=== PATIENT | female | born 1940 ===

== ENCOUNTER 2021-09-29 09:45 | Inpatient (IN) | payer OTHER ==
[~2021-09-29] VITALS: Ht 152.4 cm; Wt 74.4 kg
[2021-10-02] MEDS ORDERED: PERCOCET 5-3251 EACH PO (09:52)
[2021-10-02] MEDS ORDERED: ELIQUIS2.5 MG PO (09:52)
[2021-10-02] MEDS ORDERED: DUI500 PO (09:52)
== END 2021-10-02 22:48 | disposition home or self-care (01) | DRG 470 ==
LOC: SURG 09-30 06:00 → O/R 09-30 06:00 → SURG 09-30 08:30 → SURH 10-01 16:45
PROVIDERS: ADMIT Orthopaedic Surgery; ATTEND Orthopaedic Surgery
PROC: 0SRD0J9 Replacement of Left Knee Joint with Synthetic Substitute, Cemented, Open Approach (ICD-10-PCS; principal; 2021-09-30 08:30)
DX: M17.12 Unilateral primary osteoarthritis, left knee (principal); D62 Acute posthemorrhagic anemia; M81.0 Age-related osteoporosis without current pathological fracture; M22.12 Recurrent subluxation of patella, left knee; Z96.652 Presence of left artificial knee joint